=== PATIENT | male | born 1960 | race Caucasian/White ===

== ENCOUNTER 2024-12-17 10:23 | Emergency (ER) | payer OTHER ==
[~2024-12-17] VITALS: Ht 182.9 cm; Wt 83.9 kg
[2024-12-17 10:35] VITALS: TEMP 97.7
[2024-12-17 11:16] LABS: PLATELET COUNT (AUTO) 318 K/uL (150-450); RED BLOOD CELL COUNT(AUTO) 3.18 MIL/uL (4.5-6.0); RED CELL DISTRIBUTION WIDTH 20.1 % (11.5-15.0); WHITE BLOOD COUNT (AUTO) 4.2 K/uL (4.3-11.0)
[2024-12-17 11:25] LABS: CALCIUM, SERUM 7.8 mg/dL (8.5-10.1); CREATININE 0.8 mg/dL (0.6-1.3); SODIUM SERUM 137 mmol/L (136-145); UREA NITROGEN, BLOOD 11 mg/dL (7-18)
[2024-12-17 11:37] LABS: ASPARTATE AMINOTRANSFERASE 66 U/L (15-37); NT-PRO BNP 981 pg/mL (0-125); TOTAL PROTEIN, SERUM 5.5 g/dL (6.4-8.2)
[2024-12-17] MEDS ORDERED: dexaMETHasone SOD PHOSPHATE 1 ML ONE (11:43)
[2024-12-17] MEDS: LEVETIRACETAM (500MG) 500 MG in IV NS 0.9% 100 ML IV SCH (11:56)
[2024-12-17] MEDS: dexaMETHasone SOD PHOSPHATE 10 MG/ML VIAL IV ONE (11:56)
[2024-12-17 14:00] VITALS: BP 130/98; O2SAT 98
== END 2024-12-17 17:07 ==
LOC: ER 10:29
DX: G93.9 Disorder of brain, unspecified (principal); R94.31 Abnormal electrocardiogram [ECG] [EKG]; Z60.2 Problems related to living alone
CPT/HCPCS: 99291; 96365; 70450; 96375; 93005; 71045; 85025; 80048; 80076; 36415; 84484; 83880; 82962; J1100; J7030; A4223; J1953